=== PATIENT | female | born 1950 | race Caucasian/White ===

== ENCOUNTER → 2016-05-05 | Outpatient (CLI) | payer MEDICARE, BC ==
[~2016-05-05] MED LIST: CALCIUM1 CAP PO; CELEBREX 200MG200 MG PO; COPPERAS1 CRE; DAYPRO600 MG PO; FLAGYL 250250 MG/TAB PO; GLUCOSAMINE500 MG PO; HORMONE; HORMONES; LEVAQUIN 750MG750 MG PO; METRONIDAZOLE500 MG PO; NORCO 325 MG-51 TAB PO; OGEN PO; OMEGA-3 FISH1000 MG PO; PRILOSEC 20MG20 MG PO; PROBIOTIC FORMU1 CAP PO; PROVERA 2.5MG2.5 MG PO; PROVERA2.5 MG PO; THE MEDICINE S200 M2 PO; TRICOR 48MG48 MG PO; TRICOR48 MG PO; WOMEN'S DAILY1 TAB PO; [UNRECOGNIZED DRUG - OTHER] PO
== END ==
LOC: MC.RAD 09:30
DX: Z12.31 Encounter for screening mammogram for malignant neoplasm of breast (principal)

== ENCOUNTER 2016-08-22 11:53 | Inpatient (IN) | payer MEDICARE, BC ==
[~2016-08-22] VITALS: Ht 154.9 cm; Wt 50.0 kg
[~2016-08-22 11:53] MED LIST changes: -CELEBREX 200MG200 MG PO; -FLAGYL 250250 MG/TAB PO; -OMEGA-3 FISH1000 MG PO; -PROBIOTIC FORMU1 CAP PO; -THE MEDICINE S200 M2 PO; -WOMEN'S DAILY1 TAB PO
[2016-08-22 12:49] LABS: BASO % 0.2 % (0.0-2.0); EOS % 0.1 % (0-4.0); GRAN # 13.2 (1.4-6.5); GRAN % 89.5 % (42.2-75.2); HEMATOCRIT 43.9 % (37.0-47.0); HEMOGLOBIN 15.1 g/dl (12.5-16.0); LYMPH # 0.9 (1.2-3.4); LYMPH % 6.2 % (20.0-51.0); MEAN CELL VOLUME 87 fl (80.0-100.0); MEAN CORPUSCULAR HEMOGLOBIN 30 pg (27.0-31.0); MEAN CORPUSCULAR HGB CONC 34 g/dl (33.0-37.0); MEAN PLATELET VOLUME 10.8 fl (7.4-10.4); MONO # 0.5 (0.1-0.6); MONO % 3.7 % (1.7-9.3); PLATELET COUNT 331 K/mm3 (130-400); RED BLOOD COUNT 5.07 M/mm3 (4.10-5.30); REDCELL DISTRIBUTION WIDTH-CV 12.5 % (11.5-14.5); WHITE BLOOD COUNT 14.7 K/mm3 (4.8-10.8)
[2016-08-22] MEDS ORDERED: FLAGYL 250250 MG/TAB PO (12:50)
[2016-08-22] MEDS ORDERED: CELEBREX 200MG200 MG PO (12:50)
[2016-08-22] MEDS ORDERED: PROBIOTIC FORMU1 CAP PO (12:53)
[2016-08-22] MEDS ORDERED: OMEGA-3 FISH1000 MG PO (12:54)
[2016-08-22] MEDS ORDERED: THE MEDICINE S200 M2 PO (12:55)
[2016-08-22] MEDS ORDERED: WOMEN'S DAILY1 TAB PO (12:56)
[2016-08-22 13:02] LABS: ADJUSTED CALCIUM 10.1 mg/dL (8.4-10.2); ALBUMIN 5.1 gm/dL (3.5-5.0); BILIRUBIN,TOTAL 1.1 mg/dL (0.0-1.0); C-REACTIVE PROTEIN 0.7 mg/dL (0.0-0.9); CREATININE, serum 0.78 mg/dL (0.52-1.25); POTASSIUM 3.8 mmol/L (3.4-5.0); TOTAL PROTEIN 8.2 gm/dL (6.4-8.2)
[2016-08-22 15:01] LABS: PH 7 (5-8); SQUAMOUS EPITHELIAL 0-2 /hpf; URINE APPEARANCE Cloudy; URINE BACTERIA None Seen /hpf; URINE BILIRUBIN Negative (NEGATIVE); URINE BLOOD Negative (NEGATIVE); URINE COLOR Yellow; URINE GLUCOSE Negative (NEGATIVE); URINE KETONE Negative (NEGATIVE); URINE RBC 0-2 /hpf; URINE UROBILINOGEN Negative (NEGATIVE); URINE WBC 0-2 /hpf
[2016-08-22 15:45] VITALS: BP 177/66; PULSE 85; TEMP 98.8
[2016-08-22 17:56] VITALS: BP 168/65; PULSE 85; TEMP 100.2
[2016-08-22 21:02] VITALS: BP 144/51; PULSE 82; TEMP 96.5
[2016-08-22 23:54] VITALS: BP 148/62; PULSE 80; TEMP 97.5
[2016-08-23 04:20] VITALS: BP 133/46; PULSE 75; TEMP 98
[2016-08-23 07:09] LABS: BASO % 0.2 % (0.0-2.0); EOS # 0.1 (0.0-0.7); EOS % 0.4 % (0-4.0); GRAN # 9.8 (1.4-6.5); GRAN % 79.7 % (42.2-75.2); HEMATOCRIT 40.8 % (37.0-47.0); HEMOGLOBIN 13.5 g/dl (12.5-16.0); LYMPH # 1.8 (1.2-3.4); LYMPH % 14.7 % (20.0-51.0); MEAN CELL VOLUME 90 fl (80.0-100.0); MEAN CORPUSCULAR HEMOGLOBIN 30 pg (27.0-31.0); MEAN CORPUSCULAR HGB CONC 33 g/dl (33.0-37.0); MEAN PLATELET VOLUME 11.6 fl (7.4-10.4); MONO # 0.6 (0.1-0.6); MONO % 4.7 % (1.7-9.3); PLATELET COUNT 355 K/mm3 (130-400); RED BLOOD COUNT 4.53 M/mm3 (4.10-5.30); WHITE BLOOD COUNT 12.2 K/mm3 (4.8-10.8)
[2016-08-23 07:18] LABS: ALBUMIN 4.7 gm/dL (3.5-5.0); CALCIUM 9.7 mg/dL (8.4-10.2); CREATININE, serum 0.69 mg/dL (0.52-1.25); MAGNESIUM 2.1 mg/dL (1.6-2.3); PHOSPHOROUS 3.8 mg/dL (2.5-4.5); POTASSIUM 3.3 mmol/L (3.4-5.0)
== END 2016-08-23 12:09 | disposition home or self-care (01) | DRG 390 ==
LOC: COL.ER 11:53 → SURG 15:04
PROVIDERS: Family Medicine; Surgery
DX: K56.60 Unspecified intestinal obstruction (principal); E78.5 Hyperlipidemia, unspecified; Z98.1 Arthrodesis status
CPT/HCPCS: J2550; J7030; Q9967

== ENCOUNTER 2018-01-20 21:40 | Emergency (ER) | payer MEDICARE, BC ==
[~2018-01-20] VITALS: Ht 154.9 cm; Wt 50.9 kg
[~2018-01-20 21:40] MED LIST changes: +CELEBREX 200MG200 MG PO; +FLAGYL 250250 MG/TAB PO; +OMEGA-3 FISH1000 MG PO; +PROBIOTIC FORMU1 CAP PO; +THE MEDICINE S200 M2 PO; +WOMEN'S DAILY1 TAB PO
[2018-01-20 21:47] VITALS: BP 141/63; TEMP 98.7
[2018-01-20] MEDS ORDERED: NORVASC 5MG5 MG/TAB PO (21:54)
[2018-01-20] MEDS ORDERED: COZAAR 50MG50 MG/TAB PO (21:54)
[2018-01-20 23:14] VITALS: PULSE 73
== END 2018-01-20 23:19 | disposition home or self-care (01) ==
LOC: COL.ER 21:40
DX: S61.210A Laceration without foreign body of right index finger without damage to nail, initial encounter (principal); I10 Essential (primary) hypertension; W26.8XXA Contact with other sharp object(s), not elsewhere classified, initial encounter

== ENCOUNTER → 2020-01-17 | Outpatient (CLI) | payer MEDICARE, BC ==
[~2020-01-17] MED LIST changes: +COZAAR 50MG50 MG/TAB PO; +NORVASC 5MG5 MG/TAB PO
== END ==
LOC: ZCOL.LAB 15:51
DX: Z20.828 Contact with and (suspected) exposure to other viral communicable diseases (principal)

== ENCOUNTER → 2020-09-19 | Outpatient (CLI) | payer MEDICARE, BC ==
[~2020-09-19] MED LIST changes: +ALDACTONE 100M100 MG PO; +CALCIUM 600MG+D1 TAB PO; -CALCIUM1 CAP PO; +IRON TABLETS325 MG PO; -PROBIOTIC FORMU1 CAP PO; +PROBIOTIC-MAJOR PO; +SLOW FE142 MG PO; +VERAPAMIL120 MG/TA1 PO
== END ==
LOC: COL.VAS 08:30 → COL.RAD 09:45
DX: I10 Essential (primary) hypertension (principal)

== ENCOUNTER 2021-01-30 14:48 | Outpatient (CLI) | payer MEDICARE, BC ==
[~2021-01-30] VITALS: Ht 154.9 cm; Wt 50.2 kg
[~2021-01-30 14:48] MED LIST changes: -ALDACTONE 100M100 MG PO; -IRON TABLETS325 MG PO; -SLOW FE142 MG PO; -VERAPAMIL120 MG/TA1 PO
[2021-01-30 15:11] VITALS: BP 127/68; PULSE 64; TEMP 98.4
[2021-01-30] MEDS ORDERED: SLOW FE142 MG PO (15:29)
[2021-01-30] MEDS ORDERED: IRON TABLETS325 MG PO (15:29)
[2021-01-30] MEDS ORDERED: VERAPAMIL120 MG/TA1 PO (15:32)
[2021-01-30] MEDS ORDERED: ALDACTONE 100M100 MG PO (15:33)
--- NOTE | 2021-01-30 16:15 | NUR ---
Pt tolerated infusion without issue and has remained for just over 30 mins post administration. No s/s of reaction. INT DC'd by ADELE Butt. Pt ambulates out from dept.
== END 2021-01-30 16:34 | disposition home or self-care (01) ==
LOC: EUO 14:48
DX: M81.0 Age-related osteoporosis without current pathological fracture (principal)
CPT/HCPCS: J3489

== ENCOUNTER → 2021-11-17 | Outpatient (CLI) | payer MEDICARE, BC ==
[~2021-11-17] MED LIST changes: +ALDACTONE 100M100 MG PO; +IRON TABLETS325 MG PO; +SLOW FE142 MG PO; +VERAPAMIL120 MG/TA1 PO
== END ==
LOC: MC.RAD 12:46
DX: Z12.31 Encounter for screening mammogram for malignant neoplasm of breast (principal)

== ENCOUNTER → 2024-02-10 | Outpatient (CLI) | payer MEDICARE, BC ==
[~2024-02-10] MED LIST changes: +ALDACTONE50 MG PO; +BUSPIRONE HCL7.5 MG PO; +COZAAR100 MG PO; +DESYREL 50MG50 MG PO; +NEXIUM 20MG20 MG PO; +PEPCID 20MG TAB20 MG PO; +VANCOCIN H125 MG/CAP PO; +VERELAN240 MG PO
== END ==
LOC: MC.RAD 09:48
DX: Z12.31 Encounter for screening mammogram for malignant neoplasm of breast (principal)